=== PATIENT | male | born 1960 | race Caucasian/White ===

== ENCOUNTER 2017-09-23 02:40 | Emergency (ER) | payer OTHER, SELFPAY | END 2017-09-23 04:19 | disposition home or self-care (01) | PROVIDERS: Emergency Provider Emergency Medicine; Visit Provider Emergency Medicine | DX: J20.9 Acute bronchitis, unspecified (principal); Z88.6 Allergy status to analgesic agent | CPT/HCPCS: 71020; 87275; 87276; 94640; 96372 ==

== ENCOUNTER 2022-12-17 08:15 | Emergency (ER) | payer OTHER, SELFPAY ==
[2022-12-17 08:33] VITALS: BP 137/80; PULSE 67; RESP 18; TEMP 36.7; O2SAT 98; BMI 27.1
--- NOTE | 2022-12-17 08:45 | HMH.EDGENADL ---
Discharge Plan Disposition Patient Disposition: Home, Self-Care Condition: Fair Prescriptions Prescriptions: New amoxicillin-pot clavulanate 875-125 mg tablet 1 tab PO BID Qty: 20 0RF Referrals Follow up/Referrals: Provider,Referral, MD [Primary Care Provider] - See instructions Clinical Impressions Clinical Impression: Sinusitis Instructions Patient Instructions: DI for Sinusitis Discharge ED Provider: Broderick Watkins [facility] Adult HPI General Chief complaint: Upper Respiratory Infection Stated complaint: chest congestion, cough, eyes irritated Time Seen by Provider: 12/17/22 08:35 Mode of Arrival: Ambulatory Source of Information: Patient Limitations: No Limitations Description of Symptoms (Recalled from ER Triage Doc. by RN): Pt c/o multiple sinus and upper respiratory symptoms after work trip to [facility] exposure to known environmental irritants/pollens, asks for symptomatic relief to be at the top of my game tomorrow for work History of Present Illness HPI narrative: Patient is a 62-year-old male with no pertinent past medical history who presents with concern for sinus infection, cough, eye irritation. He says that this has been going on the last couple days and he has been traveling quite a bit. 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 He denies any chest pain or shortness of breath. He says that his eyes have been crusting up. Denies any nausea. Denies any abdominal pain. Related Data Previous Rx's Medication Instructions Recorded amoxicillin 875 mg-potassium 1 tab PO BID #20 tabs 12/17/22 clavulanate 125 mg tablet Allergies Allergy/AdvReac Type Severity Reaction Status Date / Time codeine [CODEINE] Allergy Unknown Unverified 09/23/17 02:49 [facility] Disclaimer: The information contained in this section may have been updated after the patient was seen, as this information can be updated by other users. Social History Smoking Status: Unknown if ever smoked alcohol intake: never current occupational status: employed Travel in the last 8 weeks: None ROS Obtained: Yes All systems reviewed & no additional complaints except as documented Physical Exam General General appearance: alert and in no apparent distress Head Head exam: atraumatic, normocephalic and normal inspection Eye Eye exam: Present PERRL, conjunctival redness, conjunctival injection and discharge; Absent normal appearance ENT ENT exam: Present normal exam, mucous membranes moist and normal external ear exam Neck Neck exam: Present normal inspection and trachea midline Chest Chest inspection: Present normal inspection and symmetric chest wall rise Respiratory Respiratory exam: Present normal lung sounds bilaterally; Absent respiratory distress Cardiovascular Cardiovascular exam: Present regular rate and normal rhythm Abdominal Exam Abdominal exam: Present soft; Absent distention, tenderness or guarding Extremities Exam Extremities exam: Present normal inspection; Absent edema Neurological Exam Neurological exam: Present alert and oriented X3 Psychiatric Psychiatric exam: Present normal affect and normal mood Skin Skin exam: Present warm, dry, intact and normal color Medical Decision Making Medical Records Medical records reviewed: Yes I reviewed the patient's medical records. Tin Inquiry Pt receiving controlled substance: No Vital Signs: 12/17/22 08:33 Temperature 98.1 F Temperature Source Oral Pulse Rate [Right Radial] 67 Respiratory Rate 18 Blood Pressure [Right Arm] 137/80 Blood Pressure Mean [Right Arm] 99 Blood Pressure Source [Right Arm] Automatic Cuff Blood Pressure Position [Right Arm] Sitting 02 Sat by Pulse Oximetry 98 Orders (Tests/Meds): ED MEDICATIONS Generic Name Dose Route Start Last Admin Trade Name Freq PRN Reason Stop Dose Admin Artificial Tears 1 ml 12/17/22 08:32 Artificial Tears Soln 15ml Bottle OP 01/16/23 08:31 QIDP PRN Eye Irritation
[2022-12-17 09:07] VITALS: BP 130/80; PULSE 75; RESP 14; TEMP 36.8; O2SAT 100
== END 2022-12-17 09:08 | disposition home or self-care (01) ==
PROVIDERS: Emergency Provider Student in an Organized Health Care Education/Training Program
DX: J01.90 Acute sinusitis, unspecified (principal); H10.33 Unspecified acute conjunctivitis, bilateral
CPT/HCPCS: 96374; 99284